=== PATIENT | male | born 1955 | race Caucasian/White ===

== ENCOUNTER 2021-08-08 03:58 | Day surgery (SDC) | payer OTHER ==
[2021-08-01 17:41] VITALS: BMI 23.5
[2021-08-08] MEDS ORDERED: SUCCINYLCHOLINE CHLORIDE 200 MG/10 ML SYRINGE ONE (09:46)
[2021-08-08] MEDS ORDERED: MIDAZOLAM HCL 2 MG/2 ML SINGLE DOSE VIAL ONE (09:49)
[2021-08-08] MEDS ORDERED: FENTANYL CITRATE/PF 50 MCG/ML VIAL ONE (09:49)
[2021-08-08] MEDS ORDERED: PROPOFOL 20 ML ONE ×2 (09:49)
[2021-08-08] MEDS ORDERED: GENTAMICIN SO4 80 MG/2 ML VIAL ONE (10:12)
[2021-08-08] MEDS ORDERED: ceFAZolin SODIUM 1 GM VIAL IVPB ONE ×2 (10:17→10:32)
[2021-08-08] MEDS ORDERED: ACETAMINOPHEN INJECTION 100 ML IVPB ONE (10:25)
[2021-08-08] MEDS ORDERED: GENTAMICIN 80MG PREMIX BAG IVPB ONE (10:30)
[2021-08-08] MEDS ORDERED: PHENYLEPHRINE HCL 10 MG/1 ML SINGLE DOSE VIAL ONE ×2 (11:09)
[2021-08-08] MEDS ORDERED: FENTANYL CITRATE/PF 50 MCG/ML VIAL IVPUSH PRN (12:21)
[2021-08-08 14:36] VITALS: TEMP 97.5
[2021-08-08 18:34] VITALS: BP 101/63; PULSE 88
== END 2021-08-08 18:10 | disposition home or self-care (01) ==
LOC: JASU-SURG 03:58
PROVIDERS: ATTEND Urology
PROC: 0VT08ZZ Resection of Prostate, Via Natural or Artificial Opening Endoscopic (ICD-10-PCS; principal; 2021-08-08 10:00)
DX: N40.1 Benign prostatic hyperplasia with lower urinary tract symptoms (principal); R33.8 Other retention of urine
CPT/HCPCS: 82962; 88305-TC; 94760

== ENCOUNTER 2021-08-22 18:49 | Inpatient (IN) | payer OTHER ==
[2021-08-22] MEDS ORDERED: LIDOCAINE HCL 2% JELLY 10 ML CARTRIDGE ONE (19:35)
[2021-08-22 20:28] LABS: BASO % 0.4 % (0-2.0); EOS % 0.3 % (0-4.5); HEMATOCRIT 37.3 % (35.4-49); HEMOGLOBIN 12.5 GM/dL (11.7-16.9); LYMPH % 13.3 % (8-40); MCH 29.9 pg (25.7-33.7); MCHC 33.4 g/dl (32.0-35.9); MEAN CELL VOLUME 89.3 fl (80-96); MEAN PLT VOLUME 7.9 fl (7.5-11.1); MONO % 5.5 % (3.8-10.2); NEUT % 80.5 % (42.8-82.8); PLATELET COUNT 544 10^3/uL (134-434); RBC 4.17 M/mm3 (4.00-5.60); RDW 13.7 % (11.9-15.9); WHITE BLOOD COUNT 15.3 K/mm3 (4.0-10.0)
[2021-08-22 20:46] LABS: PH,URINE >= 9.0 (5.0-8.0); URINE APPEARANCE Cloudy; URINE BILIRUBIN 3+ (NEGATIVE); URINE COLOR Other; URINE GLUCOSE (UA) 3+ (NEGATIVE); URINE KETONE 2+ (NEGATIVE); URINE LEUK ESTERASE 3+ (NEGATIVE); URINE NITRITE Positive (NEGATIVE); URINE PROTEIN 3+ (NEGATIVE); URINE UROBILINOGEN 4.0 E.U/dl mg/dL (0.2-1.0)
[2021-08-22 20:54] LABS: ALBUMIN 3.8 g/dl (3.4-5.0); BLOOD UREA NITROGEN 34.5 mg/dL (7-18); MAGNESIUM 2.1 mg/dL (1.8-2.4)
[2021-08-22 20:57] LABS: CREATININE 1.1 mg/dL (0.55-1.3)
[2021-08-22 20:58] LABS: BILIRUBIN,TOTAL 0.8 mg/dL (0.2-1)
[2021-08-22 20:59] LABS: TOT PROT 7.4 g/dl (6.4-8.2)
[2021-08-22] MEDS ORDERED: SODIUM CHLORIDE 0.9% 500 ML INFUS.BAG IV ONE ×2 (21:16→21:17)
[2021-08-22] MEDS ORDERED: CEFTRIAXONE 1 GM/50 ML BAG ONE (21:21)
[2021-08-23] MEDS ORDERED: SODIUM CHLORIDE 1,000 ML IV SCH ×2 (01:15→16:11)
[2021-08-23] MEDS ORDERED: ZOLPIDEM TARTRATE 5 MG TABLET PO ONE (02:12)
[2021-08-23] MEDS: PIPERACILLIN/TAZOB 3.375 GM 3.375 GM in DEXTROSE 5%-WATER - 50 ML IVPB SCH ×4 (02:19→18:21)
[2021-08-23 07:06] LABS: BASO % 0.3 % (0-2.0); EOS % 0.5 % (0-4.5); HEMATOCRIT 26.4 % (35.4-49); LYMPH % 22.7 % (8-40); MCH 30.3 pg (25.7-33.7); MCHC 33.9 g/dl (32.0-35.9); MEAN CELL VOLUME 89.6 fl (80-96); MEAN PLT VOLUME 7.5 fl (7.5-11.1); NEUT % 68.5 % (42.8-82.8); PLATELET COUNT 340 10^3/uL (134-434); RBC 2.95 M/mm3 (4.00-5.60); RDW 13.9 % (11.9-15.9); WHITE BLOOD COUNT 9.3 K/mm3 (4.0-10.0)
[2021-08-23 07:29] LABS: BLOOD UREA NITROGEN 25.2 mg/dL (7-18); MAGNESIUM 1.8 mg/dL (1.8-2.4)
[2021-08-23 07:31] LABS: PHOSPHOROUS 3.8 mg/dL (2.5-4.9)
[2021-08-23 07:32] LABS: CREATININE 0.7 mg/dL (0.55-1.3); TOT PROT 5.4 g/dl (6.4-8.2)
[2021-08-23 07:33] LABS: BILIRUBIN,TOTAL 0.4 mg/dL (0.2-1)
[2021-08-23 07:37] LABS: ALBUMIN 2.7 g/dl (3.4-5.0); CALCIUM 7.9 mg/dL (8.5-10.1)
[2021-08-23 08:21] LABS: INR 1.03 (0.83-1.09); PROTHROMBIN TIME (PATIENT) 11.9 SEC (9.7-13.0)
[2021-08-23 08:23] LABS: ACTIVATED PTT 28.5 SECONDS (25.2-36.5)
[2021-08-23] MEDS: INSULIN SLIDING SCALE (NOVOLOG) 1 VIAL SQ SCH ×4 (08:24→23:20)
[2021-08-23] MEDS ORDERED: PANTOPRAZOLE 20 MG TABLET PO ONE (08:27)
[2021-08-23] MEDS ORDERED: TAMSULOSIN HCL 0.4 MG CAP ONE (08:27)
[2021-08-23] MEDS ORDERED: METOPROLOL TARTRATE 25 MG TABLET (FP) ONE (08:27)
[2021-08-23] MEDS ORDERED: PIPERACILLIN/TAZOB 3.375 GM 3.375 GM/50 ML BAG IVPB ONE (08:28)
[2021-08-23] MEDS ORDERED: METOCLOPRAMIDE HCL 10 MG TABLET (FP) PO ONE (08:28)
[2021-08-23] MEDS ORDERED: METOCLOPRAMIDE HCL 10 MG TABLET (FP) PO SCH (10:00)
[2021-08-23] MEDS ORDERED: METOPROLOL TARTRATE 25 MG TABLET (FP) PO SCH (10:00)
[2021-08-23] MEDS ORDERED: PANTOPRAZOLE 20 MG TABLET PO SCH (10:00)
[2021-08-23] MEDS ORDERED: TAMSULOSIN HCL 0.4 MG CAP PO SCH (10:00)
[2021-08-23] MEDS ORDERED: PIPERACILLIN/TAZOBACTAM 3.375 GM VIAL IVPB ONE (17:47)
[2021-08-23] MEDS ORDERED: DEXTROSE 5%-WATER - 50 ML IVPB ONE (17:47)
[2021-08-23 19:17] VITALS: BMI 22.8
[2021-08-23] MEDS ORDERED: DULoxetine HCL 20 MG CAPSULE.DR PO ONE (21:48)
[2021-08-23] MEDS ORDERED: DULoxetine HCL 30 MG CAPSULE.DR PO ONE (21:48)
[2021-08-23] MEDS ORDERED: INSULIN (NOVOLOG) ASPART 100 UNITS/ML 10ML VIAL ONE (21:49)
[2021-08-23] MEDS ORDERED: DULoxetine HCL 60 MG CAPSULE.DR PO SCH (22:00)
[2021-08-23] MEDS ORDERED: DULOXETINE HCL PO SCH (22:00)
[2021-08-23] MEDS: TAMSULOSIN HCL 0.4 MG CAP PO SCH (22:12)
[2021-08-23] MEDS: METOCLOPRAMIDE HCL 10 MG TABLET (FP) PO SCH (22:12)
[2021-08-23] MEDS: DULOXETINE HCL PO SCH (22:12)
[2021-08-23] MEDS: METOPROLOL TARTRATE 25 MG TABLET (FP) PO SCH (22:13)
[2021-08-23] MEDS ORDERED: ACETAMINOPHEN 1000 MG/100 ML BAG IVPB ONE (22:37)
[2021-08-23] MEDS: ZOLPIDEM TARTRATE 5 MG TABLET PO PRN (23:21)
[2021-08-24] MEDS ORDERED: PIPERACILLIN/TAZOBACTAM 3.375 GM VIAL IVPB ONE ×2 (01:07→10:34)
[2021-08-24] MEDS ORDERED: DEXTROSE 5%-WATER - 50 ML IVPB ONE ×2 (01:07→10:34)
[2021-08-24] MEDS: PIPERACILLIN/TAZOB 3.375 GM 3.375 GM in DEXTROSE 5%-WATER - 50 ML IVPB SCH ×4 (02:10→10:40)
[2021-08-24] MEDS: INSULIN SLIDING SCALE (NOVOLOG) 1 VIAL SQ SCH ×4 (06:14→21:15)
[2021-08-24] MEDS: PANTOPRAZOLE 20 MG TABLET PO SCH (10:37)
[2021-08-24] MEDS: METOCLOPRAMIDE HCL 10 MG TABLET (FP) PO SCH ×2 (10:38→21:07)
[2021-08-24] MEDS: TAMSULOSIN HCL 0.4 MG CAP PO SCH ×2 (10:38→21:07)
[2021-08-24] MEDS: METOPROLOL TARTRATE 25 MG TABLET (FP) PO SCH ×2 (10:39→21:07)
[2021-08-24 12:57] LABS: MCH 30.8 pg (25.7-33.7); MCHC 34.9 g/dl (32.0-35.9); MEAN CELL VOLUME 88.4 fl (80-96); MEAN PLT VOLUME 7.5 fl (7.5-11.1); PLATELET COUNT 240 10^3/uL (134-434); RDW 13.8 % (11.9-15.9); WHITE BLOOD COUNT 6.7 K/mm3 (4.0-10.0)
[2021-08-24] MEDS ORDERED: DEXTROSE 5%-WATER 100 ML IVPB ONE (17:56)
[2021-08-24] MEDS ORDERED: MEROPENEM 1 GM VIAL (RESTRICTED TO ID) IVPB ONE (17:56)
[2021-08-24] MEDS: MEROPENEM 1 GM in DEXTROSE 5%-WATER 100 ML IVPB SCH (18:13)
[2021-08-24] MEDS ORDERED: DULoxetine HCL 30 MG CAPSULE.DR PO ONE (21:02)
[2021-08-24] MEDS ORDERED: DULoxetine HCL 20 MG CAPSULE.DR PO ONE (21:02)
[2021-08-24] MEDS: DULOXETINE HCL PO SCH (21:06)
[2021-08-24] MEDS: ZOLPIDEM TARTRATE 5 MG TABLET PO PRN (22:44)
[2021-08-25] MEDS ORDERED: DEXTROSE 5%-WATER 100 ML IVPB ONE ×3 (00:55→17:18)
[2021-08-25] MEDS ORDERED: MEROPENEM 1 GM VIAL (RESTRICTED TO ID) IVPB ONE ×3 (00:55→17:18)
[2021-08-25] MEDS: MEROPENEM 1 GM in DEXTROSE 5%-WATER 100 ML IVPB SCH ×3 (01:43→17:25)
[2021-08-25] MEDS: INSULIN SLIDING SCALE (NOVOLOG) 1 VIAL SQ SCH ×4 (06:18→22:13)
[2021-08-25 09:34] LABS: BASO % 0.8 % (0-2.0); EOS % 2.7 % (0-4.5); HEMATOCRIT 26.7 % (35.4-49); HEMOGLOBIN 9.4 GM/dL (11.7-16.9); LYMPH % 25.1 % (8-40); MCH 31.3 pg (25.7-33.7); MCHC 35.3 g/dl (32.0-35.9); MEAN CELL VOLUME 88.5 fl (80-96); MEAN PLT VOLUME 7.8 fl (7.5-11.1); MONO % 9.5 % (3.8-10.2); NEUT % 61.9 % (42.8-82.8); PLATELET COUNT 295 10^3/uL (134-434); RBC 3.02 M/mm3 (4.00-5.60); RDW 14.4 % (11.9-15.9)
[2021-08-25 09:59] LABS: BLOOD UREA NITROGEN 10.4 mg/dL (7-18); CALCIUM 8.7 mg/dL (8.5-10.1); MAGNESIUM 2.1 mg/dL (1.8-2.4)
[2021-08-25 10:01] LABS: PHOSPHOROUS 3.5 mg/dL (2.5-4.9)
[2021-08-25 10:02] LABS: BILIRUBIN,TOTAL 0.3 mg/dL (0.2-1); CREATININE 0.5 mg/dL (0.55-1.3); TOT PROT 5.9 g/dl (6.4-8.2)
[2021-08-25] MEDS: PANTOPRAZOLE 20 MG TABLET PO SCH (10:07)
[2021-08-25] MEDS: DOXYCYCLINE HYCLATE 100 MG CAPSULE PO SCH ×2 (10:07→17:25)
[2021-08-25] MEDS: METOCLOPRAMIDE HCL 10 MG TABLET (FP) PO SCH ×2 (10:07→22:14)
[2021-08-25] MEDS: METOPROLOL TARTRATE 25 MG TABLET (FP) PO SCH (10:07)
[2021-08-25] MEDS: TAMSULOSIN HCL 0.4 MG CAP PO SCH ×2 (10:07→22:13)
[2021-08-25] MEDS ORDERED: LACTATED RINGERS SOLUTION 1,000 ML/1,000 ML INFUS.BAG IV SCH (11:00)
[2021-08-25] MEDS ORDERED: DULoxetine HCL 30 MG CAPSULE.DR PO ONE ×2 (20:50→20:52)
[2021-08-25] MEDS ORDERED: DULoxetine HCL 20 MG CAPSULE.DR PO ONE (20:51)
[2021-08-25] MEDS ORDERED: INSULIN (NOVOLOG) ASPART 100 UNITS/ML 10ML VIAL ONE (20:51)
[2021-08-25] MEDS: DULOXETINE HCL PO SCH (22:13)
[2021-08-25] MEDS: ZOLPIDEM TARTRATE 5 MG TABLET PO PRN (22:14)
[2021-08-26] MEDS ORDERED: MEROPENEM 1 GM VIAL (RESTRICTED TO ID) IVPB ONE ×3 (01:36→17:05)
[2021-08-26] MEDS ORDERED: DEXTROSE 5%-WATER 100 ML IVPB ONE ×3 (01:36→17:05)
[2021-08-26] MEDS: MEROPENEM 1 GM in DEXTROSE 5%-WATER 100 ML IVPB SCH ×3 (01:50→17:17)
[2021-08-26] MEDS: INSULIN SLIDING SCALE (NOVOLOG) 1 VIAL SQ SCH ×4 (06:08→22:43)
[2021-08-26] MEDS: METOCLOPRAMIDE HCL 10 MG TABLET (FP) PO SCH ×2 (10:11→22:29)
[2021-08-26] MEDS: TAMSULOSIN HCL 0.4 MG CAP PO SCH ×2 (10:11→22:29)
[2021-08-26] MEDS: DOXYCYCLINE HYCLATE 100 MG CAPSULE PO SCH ×2 (10:11→17:16)
[2021-08-26] MEDS: PANTOPRAZOLE 20 MG TABLET PO SCH (10:11)
[2021-08-26 12:38] LABS: BASO % 0.5 % (0-2.0); EOS % 2.1 % (0-4.5); HEMATOCRIT 27.6 % (35.4-49); HEMOGLOBIN 9.4 GM/dL (11.7-16.9); LYMPH % 27.4 % (8-40); MCH 30.6 pg (25.7-33.7); MCHC 34.2 g/dl (32.0-35.9); MEAN CELL VOLUME 89.4 fl (80-96); MEAN PLT VOLUME 7.8 fl (7.5-11.1); MONO % 9.8 % (3.8-10.2); NEUT % 60.2 % (42.8-82.8); PLATELET COUNT 322 10^3/uL (134-434); RBC 3.08 M/mm3 (4.00-5.60); RDW 14.2 % (11.9-15.9); WHITE BLOOD COUNT 5.8 K/mm3 (4.0-10.0)
[2021-08-26] MEDS: METANX PO SCH (12:56)
[2021-08-26 13:07] LABS: BLOOD UREA NITROGEN 15.5 mg/dL (7-18); CALCIUM 9.2 mg/dL (8.5-10.1); MAGNESIUM 1.9 mg/dL (1.8-2.4)
[2021-08-26 13:10] LABS: CREATININE 0.6 mg/dL (0.55-1.3)
[2021-08-26 13:11] LABS: BILIRUBIN,TOTAL 0.4 mg/dL (0.2-1)
[2021-08-26] MEDS ORDERED: DULoxetine HCL 20 MG CAPSULE.DR PO ONE (20:18)
[2021-08-26] MEDS ORDERED: DULoxetine HCL 30 MG CAPSULE.DR PO ONE (20:18)
[2021-08-26] MEDS: ZOLPIDEM TARTRATE 5 MG TABLET PO PRN (22:30)
[2021-08-26] MEDS: DULOXETINE HCL PO SCH (22:30)
[2021-08-27] MEDS ORDERED: MEROPENEM 1 GM VIAL (RESTRICTED TO ID) IVPB ONE ×3 (00:50→18:34)
[2021-08-27] MEDS ORDERED: DEXTROSE 5%-WATER 100 ML IVPB ONE ×3 (00:50→18:34)
[2021-08-27] MEDS: MEROPENEM 1 GM in DEXTROSE 5%-WATER 100 ML IVPB SCH ×3 (01:23→18:52)
[2021-08-27] MEDS: INSULIN SLIDING SCALE (NOVOLOG) 1 VIAL SQ SCH ×4 (07:24→22:20)
[2021-08-27 08:31] LABS: BASO % 1.1 % (0-2.0); EOS % 3.5 % (0-4.5); HEMATOCRIT 29.2 % (35.4-49); LYMPH % 27.9 % (8-40); MCH 30.4 pg (25.7-33.7); MEAN CELL VOLUME 89.3 fl (80-96); MONO % 10.4 % (3.8-10.2); NEUT % 57.1 % (42.8-82.8); PLATELET COUNT 353 10^3/uL (134-434); RBC 3.28 M/mm3 (4.00-5.60); RDW 14.4 % (11.9-15.9)
[2021-08-27 08:35] LABS: CALCIUM 9.1 mg/dL (8.5-10.1)
[2021-08-27 08:37] LABS: ALBUMIN 3.1 g/dl (3.4-5.0); MAGNESIUM 1.9 mg/dL (1.8-2.4)
[2021-08-27 08:39] LABS: CREATININE 0.7 mg/dL (0.55-1.3)
[2021-08-27 08:41] LABS: BILIRUBIN,TOTAL 0.6 mg/dL (0.2-1); TOT PROT 6.4 g/dl (6.4-8.2)
[2021-08-27] MEDS ORDERED: INSULIN (NOVOLOG) ASPART 100 UNITS/ML 10ML VIAL ONE (11:19)
[2021-08-27] MEDS: DOXYCYCLINE HYCLATE 100 MG CAPSULE PO SCH ×2 (11:23→18:52)
[2021-08-27] MEDS: TAMSULOSIN HCL 0.4 MG CAP PO SCH ×2 (11:23→22:19)
[2021-08-27] MEDS: METANX PO SCH (11:24)
[2021-08-27] MEDS: METOCLOPRAMIDE HCL 10 MG TABLET (FP) PO SCH ×2 (11:24→22:20)
[2021-08-27] MEDS: PANTOPRAZOLE 20 MG TABLET PO SCH (11:24)
[2021-08-27] MEDS ORDERED: DULoxetine HCL 30 MG CAPSULE.DR PO ONE (20:46)
[2021-08-27] MEDS ORDERED: DULoxetine HCL 20 MG CAPSULE.DR PO ONE (20:47)
[2021-08-27] MEDS ORDERED: MELATONIN 1 MG TABLET PO ONE (21:05)
[2021-08-27] MEDS: DULOXETINE HCL PO SCH (22:19)
[2021-08-27] MEDS ORDERED: ZOLPIDEM TARTRATE 5 MG TABLET PO ONE (22:42)
[2021-08-28] MEDS ORDERED: MEROPENEM 1 GM VIAL (RESTRICTED TO ID) IVPB ONE ×3 (01:41→18:18)
[2021-08-28] MEDS ORDERED: DEXTROSE 5%-WATER 100 ML IVPB ONE ×3 (01:42→18:18)
[2021-08-28] MEDS: MEROPENEM 1 GM in DEXTROSE 5%-WATER 100 ML IVPB SCH ×3 (01:59→18:25)
[2021-08-28] MEDS: INSULIN SLIDING SCALE (NOVOLOG) 1 VIAL SQ SCH ×4 (06:29→22:29)
[2021-08-28 08:08] LABS: BASO % 1.2 % (0-2.0); EOS % 5.2 % (0-4.5); HEMATOCRIT 28.9 % (35.4-49); HEMOGLOBIN 10.1 GM/dL (11.7-16.9); LYMPH % 30.6 % (8-40); MCH 31.1 pg (25.7-33.7); MCHC 34.8 g/dl (32.0-35.9); MEAN CELL VOLUME 89.3 fl (80-96); MEAN PLT VOLUME 7.8 fl (7.5-11.1); MONO % 12.9 % (3.8-10.2); NEUT % 50.1 % (42.8-82.8); PLATELET COUNT 339 10^3/uL (134-434); RBC 3.24 M/mm3 (4.00-5.60); RDW 14.6 % (11.9-15.9); WHITE BLOOD COUNT 5.3 K/mm3 (4.0-10.0)
[2021-08-28 08:37] LABS: ALBUMIN 3.2 g/dl (3.4-5.0); BLOOD UREA NITROGEN 21.8 mg/dL (7-18); CALCIUM 9.2 mg/dL (8.5-10.1)
[2021-08-28 08:41] LABS: CREATININE 0.7 mg/dL (0.55-1.3)
[2021-08-28 08:42] LABS: BILIRUBIN,TOTAL 0.7 mg/dL (0.2-1); TOT PROT 6.5 g/dl (6.4-8.2)
[2021-08-28] MEDS: TAMSULOSIN HCL 0.4 MG CAP PO SCH ×2 (10:55→22:29)
[2021-08-28] MEDS: METOCLOPRAMIDE HCL 10 MG TABLET (FP) PO SCH ×2 (10:56→22:29)
[2021-08-28] MEDS: DOXYCYCLINE HYCLATE 100 MG CAPSULE PO SCH ×2 (10:56→18:25)
[2021-08-28] MEDS: PANTOPRAZOLE 20 MG TABLET PO SCH (10:56)
[2021-08-28] MEDS: METANX PO SCH (11:15)
[2021-08-28] MEDS ORDERED: DULoxetine HCL 30 MG CAPSULE.DR PO ONE (20:52)
[2021-08-28] MEDS ORDERED: DULoxetine HCL 20 MG CAPSULE.DR PO ONE (20:53)
[2021-08-28] MEDS ORDERED: ZOLPIDEM TARTRATE 5 MG TABLET PO ONE (22:00)
[2021-08-28] MEDS: DULOXETINE HCL PO SCH (22:28)
[2021-08-29] MEDS: INSULIN SLIDING SCALE (NOVOLOG) 1 VIAL SQ SCH ×4 (06:43→21:43)
[2021-08-29 08:17] LABS: BASO % 0.9 % (0-2.0); EOS % 5.5 % (0-4.5); HEMATOCRIT 30.1 % (35.4-49); HEMOGLOBIN 10.3 GM/dL (11.7-16.9); LYMPH % 31.8 % (8-40); MCH 30.8 pg (25.7-33.7); MCHC 34.3 g/dl (32.0-35.9); MEAN CELL VOLUME 89.8 fl (80-96); MEAN PLT VOLUME 8.1 fl (7.5-11.1); MONO % 13.9 % (3.8-10.2); NEUT % 47.9 % (42.8-82.8); PLATELET COUNT 357 10^3/uL (134-434); RBC 3.36 M/mm3 (4.00-5.60); RDW 14.3 % (11.9-15.9); WHITE BLOOD COUNT 5.3 K/mm3 (4.0-10.0)
[2021-08-29 08:38] LABS: CALCIUM 9.3 mg/dL (8.5-10.1)
[2021-08-29 08:39] LABS: ALBUMIN 3.4 g/dl (3.4-5.0); BLOOD UREA NITROGEN 25.8 mg/dL (7-18); MAGNESIUM 2.2 mg/dL (1.8-2.4)
[2021-08-29 08:42] LABS: CREATININE 0.7 mg/dL (0.55-1.3)
[2021-08-29 08:44] LABS: BILIRUBIN,TOTAL 0.6 mg/dL (0.2-1); TOT PROT 6.6 g/dl (6.4-8.2)
[2021-08-29] MEDS: TAMSULOSIN HCL 0.4 MG CAP PO SCH ×2 (11:26→21:42)
[2021-08-29] MEDS: PANTOPRAZOLE 20 MG TABLET PO SCH (11:26)
[2021-08-29] MEDS: METOCLOPRAMIDE HCL 10 MG TABLET (FP) PO SCH ×2 (11:27→21:42)
[2021-08-29] MEDS: METANX PO SCH (11:27)
[2021-08-29] MEDS: DOXYCYCLINE HYCLATE 100 MG CAPSULE PO SCH ×2 (11:27→17:25)
[2021-08-29] MEDS: ERTAPENEM SODIUM 1 GM in SODIUM CHLORIDE 50 ML IVPB SCH (11:28)
[2021-08-29] MEDS ORDERED: DULoxetine HCL 30 MG CAPSULE.DR PO ONE (21:00)
[2021-08-29] MEDS ORDERED: DULoxetine HCL 20 MG CAPSULE.DR PO ONE (21:00)
[2021-08-29] MEDS ORDERED: ZOLPIDEM TARTRATE 5 MG TABLET PO PRN (21:14)
[2021-08-29] MEDS: DULOXETINE HCL PO SCH (21:41)
[2021-08-30] MEDS: INSULIN SLIDING SCALE (NOVOLOG) 1 VIAL SQ SCH ×2 (06:22→11:49)
[2021-08-30 07:01] VITALS: PULSE 94
[2021-08-30 09:49] LABS: HEMATOCRIT 29.9 % (35.4-49); HEMOGLOBIN 10.1 GM/dL (11.7-16.9); LYMPH % 34.9 % (8-40); MCH 30.2 pg (25.7-33.7); MCHC 33.8 g/dl (32.0-35.9); MEAN CELL VOLUME 89.1 fl (80-96); NEUT % 46.1 % (42.8-82.8); PLATELET COUNT 319 10^3/uL (134-434); RBC 3.36 M/mm3 (4.00-5.60); RDW 14.1 % (11.9-15.9); WHITE BLOOD COUNT 4.5 K/mm3 (4.0-10.0)
[2021-08-30 10:08] LABS: BLOOD UREA NITROGEN 23.3 mg/dL (7-18); CALCIUM 9.1 mg/dL (8.5-10.1)
[2021-08-30 10:09] LABS: MAGNESIUM 2.2 mg/dL (1.8-2.4)
[2021-08-30] MEDS: TAMSULOSIN HCL 0.4 MG CAP PO SCH (10:10)
[2021-08-30] MEDS: PANTOPRAZOLE 20 MG TABLET PO SCH (10:10)
[2021-08-30] MEDS: METOCLOPRAMIDE HCL 10 MG TABLET (FP) PO SCH (10:10)
[2021-08-30] MEDS: DOXYCYCLINE HYCLATE 100 MG CAPSULE PO SCH (10:10)
[2021-08-30 10:11] LABS: CREATININE 0.6 mg/dL (0.55-1.3)
[2021-08-30] MEDS: ERTAPENEM SODIUM 1 GM in SODIUM CHLORIDE 50 ML IVPB SCH (10:12)
[2021-08-30] MEDS: METANX PO SCH (10:12)
[2021-08-30 10:13] LABS: BILIRUBIN,TOTAL 0.6 mg/dL (0.2-1); TOT PROT 6.2 g/dl (6.4-8.2)
[2021-08-30 11:18] VITALS: BP 132/78; TEMP 98.9
== END 2021-08-30 15:40 | disposition home health service (06) | DRG 312 ==
LOC: JER 18:49 → JERBED 22:59 → J8W 08-23 15:25
PROVIDERS: ADMIT Hospitalist; ATTEND Nurse Practitioner Acute Care
PROC: 02HV33Z Insertion of Infusion Device into Superior Vena Cava, Percutaneous Approach (ICD-10-PCS; principal; 2021-08-29)
PROC: B518ZZA Fluoroscopy of Superior Vena Cava, Guidance (ICD-10-PCS; 2021-08-29)
DX: R55 Syncope and collapse (principal); N39.0 Urinary tract infection, site not specified; A69.20 Lyme disease, unspecified; Z16.12 Extended spectrum beta lactamase (ESBL) resistance; E86.1 Hypovolemia; R33.9 Retention of urine, unspecified; R31.0 Gross hematuria; E11.43 Type 2 diabetes mellitus with diabetic autonomic (poly)neuropathy; K31.84 Gastroparesis; I10 Essential (primary) hypertension; F32.9 Major depressive disorder, single episode, unspecified; N40.1 Benign prostatic hyperplasia with lower urinary tract symptoms; B96.4 Proteus (mirabilis) (morganii) as the cause of diseases classified elsewhere
CPT/HCPCS: 36415; 36569; 70450-TC; 71046-TC-FY; 77001-TC-FY; 80053; 81003; 82550; 82728; 82962; 83036; 83540; 83550; 83735; 84100; 84484; 85025; 85027; 85610; 85730; 86850; 86900; 86901; 87086; 87168; 87186; 93005; 93010; 93306-TC; 97116-GP; 97162-GP; 99285-25; C1751; C9803-CS; U0003; U0005